=== PATIENT | female | born 1965 | race Caucasian/White ===

== ENCOUNTER → 2020-05-14 | Outpatient (CLI) | payer OTHER ==
--- NOTE | 2020-05-14 10:26 | RAD ---
L-spine 2 views INDICATION: Back condition. Arthritis. Obesity. COMPARISON: None FINDINGS: 5 lumbar type vertebrae in anatomic alignment. No fracture or aggressive bony lesions are seen. The d isc spaces are mildly narrowed. There are facet hypertrophic changes. No bony central canal or forami nal stenosis is identified. Soft tissues are unremarkable. The sacroiliac joints and hips are somewha t obscured by underpenetration due to patient body habitus. IMPRESSION: Mild disc and facet hypertrophic changes without listhesis, fracture, or evidence of bony central can al or foraminal stenosis. If indicated, further imaging evaluation could be pursued with CT Electronically signed by: Aleja Peacock MD (05/14/2020 10:24 AM) [id number]
== END ==
LOC: RAD 08:47
PROVIDERS: ATTEND Family Medicine
DX: M47.816 Spondylosis without myelopathy or radiculopathy, lumbar region (principal)
CPT/HCPCS: 72100